=== PATIENT | male | born 1960 | race Caucasian/White ===

== ENCOUNTER 2016-05-11 09:40 | Outpatient (CLI) | payer OTHER | END 2016-05-11 23:59 | DX: Z00.00 Encounter for general adult medical examination without abnormal findings (principal); R73.01 Impaired fasting glucose; Z12.5 Encounter for screening for malignant neoplasm of prostate ==

== ENCOUNTER 2017-02-12 12:49 | Outpatient (CLI) | payer OTHER ==
--- NOTE | 2017-02-12 14:50 | MRI Preliminary Report ---
Exam: MRI LUMBAR SPINE W/O IMPRESSION: 1. Conus terminates at T12 which is normal, no abnormal cord signal. No scoliosis or listhesis. Moder ate fatty atrophy of the multifidus muscle is noted. No fractures. 2. L2-L3 shows disk dehydration and short pedicles. Mild central stenosis, neural foraminal stenosis. 3. L3-L4 shows mild central stenosis, short pedicles. Mild bilateral foraminal stenosis. 4. L4-L5 shows broad-based bulge, slightly short pedicles. Some epidural lipomatosis. Mild to moderat e central stenosis and moderate foraminal stenosis. 5. L5-S1 shows mild broad-based disk bulge. Epidural lipomatosis. Mild to moderate central stenosis. No foraminal narrowing. Comment: The following findings are so common in adults without low back pain that while we report th eir presence, they must be interpreted with caution and in the context of the clinical situation. (Re isac Roper et al, Spine 2001) Prevalence of findings in patients without low back pain: Disk degeneration (any evidence): 92% Disk desiccation/T2 signal loss: 83% Disk height loss: 56% Disk bulge: 64% Disk protrusion: 32% Annular tear/high intensity zone: 38% RADIA The call report notification system was initiated by Dr. Salo Zhu at 14:40 hrs on 02/12/17. The above findings were discussed with Dr. Ayala by Dr. Salo Zhu at 14:49 hrs on 02/12/17. SITE ID: [id number]
--- NOTE | 2017-02-12 15:16 | MRI Report ---
EXAM: MRI LUMBAR SPINE WITHOUT CONTRAST EXAM DATE: 02/12/2017 01:48 PM. CLINICAL HISTORY: Sciatica acute. COMPARISON: None. TECHNIQUE: Multiplanar, multisequence T1-weighted and fluid-sensitive sequences of the lumbar spine f rom T12 to S1 without contrast. Other: None. FINDINGS: Spinal Cord: The conus terminates at T12. The conus medullaris and cauda equina are unremarkable. Alignment: No scoliosis or spondylolisthesis. Bone Marrow: Five [id number] lumbar vertebral bodies are assumed. No gross fractures or bone les ions. No bone marrow edema. Disk Levels/Facets: T12-L1: Unremarkable. L1-L2: Unremarkable. L2-L3: Some disk dehydration, mild bulge. Short pedicles. Prominent facets. Mild central stenosis. No foraminal narrowing. L3-L4: Some disk dehydration, prominent facets. Short pedicles. Mild central stenosis. Mild bilateral foraminal stenosis. L4-L5: Broad-based disk bulge, disk dehydration. Schmorl's nodes. Slightly short pedicles. Some epidu ral lipomatosis is present. Mild to moderate central stenosis. Prominent facets.Mild to moderate fora roby stenosis L5-S1: Disk space height loss, mild broad-based disk bulge. Epidural lipomatosis. Mild to moderate ce ntral stenosis. No foraminal narrowing. Musculature: Moderate fatty atrophy of the multifidus muscle is seen. Other: The partially visualized retroperitoneum is unremarkable. IMPRESSION: 1. Conus terminates at T12 which is normal, no abnormal cord signal. No scoliosis or listhesis. Moder ate fatty atrophy of the multifidus muscle is noted. No fractures. 2. L2-L3 shows disk dehydration and short pedicles. Mild central stenosis, neural foraminal stenosis. 3. L3-L4 shows mild central stenosis, short pedicles. Mild bilateral foraminal stenosis. 4. L4-L5 shows broad-based bulge, slightly short pedicles. Some epidural lipomatosis. Mild to moderat e central stenosis and moderate foraminal stenosis. 5. L5-S1 shows mild broad-based disk bulge. Epidural lipomatosis. Mild to moderate central stenosis. No foraminal narrowing. Comment: The following findings are so common in adults without low back pain that while we report th eir presence, they must be interpreted with caution and in the context of the clinical situation. (Re isac Roper et al, Spine 2001) Prevalence of findings in patients without low back pain: Disk degeneration (any evidence): 92% Disk desiccation/T2 signal loss: 83% Disk height loss: 56% Disk bulge: 64% Disk protrusion: 32% Annular tear/high intensity zone: 38% RADIA The call report notification system was initiated by Dr. Salo Zhu at 14:40 hrs on 02/12/17. The above findings were discussed with Dr. Ayala by Dr. Salo Zhu at 14:49 hrs on 02/12/17. Referring Provider Line: [phone] SITE ID: [id number]
== END 2017-02-12 12:50 | disposition home or self-care (01) ==
LOC: DI 12:49
PROVIDERS: ATTEND Family Medicine
DX: M54.30 Sciatica, unspecified side (principal)
CPT/HCPCS: 72148

== ENCOUNTER 2017-03-18 08:00 | Outpatient (CLI) | payer OTHER ==
[2017-03-18 13:23] LABS: ALBUMIN 4.4 g/dL (3.2-5.5); ALKALINE PHOSPHATASE 36 IU/L (42-121); ALT ALANINE AMINOTRANSFERASE 53 IU/L (10-60); AST ASPARTATE AMINOTRANSFERASE 37 IU/L (10-42); BILIRUBIN,TOTAL 0.5 mg/dL (0.2-1.0); TOTAL PROTEIN 7.5 g/dL (6.7-8.2)
[2017-03-18 13:28] LABS: BILIRUBIN,DIRECT < 0.1 mg/dL (0.1-0.5)
[2017-03-19 12:56] LABS: HEPATITIS B SURFACE ANTIGEN NON-REACTIVE (NON-REACTIVE); HEPATITIS C ANTIBODY NON-REACTIVE (NON-REACTIVE)
== END 2017-03-18 08:01 | disposition home or self-care (01) ==
LOC: LAB.WCP 08:00
PROVIDERS: ATTEND Family Medicine
DX: Z20.5 Contact with and (suspected) exposure to viral hepatitis (principal); Z12.5 Encounter for screening for malignant neoplasm of prostate
CPT/HCPCS: 36415; 80076; 84153; 86317; 86704; 86803; 87340

== ENCOUNTER 2017-03-26 08:16 | Day surgery (SDC) | payer OTHER ==
[2017-03-26] MEDS ORDERED: LACTATED RINGERS 1,000 ML IV ONE (08:33)
[2017-03-26] MEDS ORDERED: fentaNYL 100 MCG/2 ML VIAL IVP ONE (10:45)
[2017-03-26] MEDS ORDERED: MIDAZOLAM 2 MG/2 ML VIAL IVP ONE (10:45)
[2017-03-26 11:27] VITALS: BP 112/63
== END 2017-03-26 08:17 | disposition home or self-care (01) ==
LOC: SDS 08:16
PROVIDERS: ATTEND Surgery
PROC: 0DJD8ZZ Inspection of Lower Intestinal Tract, Via Natural or Artificial Opening Endoscopic (ICD-10-PCS; principal; 2017-03-26 09:45)
DX: Z12.11 Encounter for screening for malignant neoplasm of colon (principal); Z80.0 Family history of malignant neoplasm of digestive organs; Z87.891 Personal history of nicotine dependence
CPT/HCPCS: 45378; J7120

== ENCOUNTER 2017-04-18 20:20 | Outpatient (CLI) | payer OTHER ==
[2017-04-18 13:02] LABS: HB2 TOTAL 17.6 g/dL; HEMOGLOBIN A1C 0.65 g/dL; HEMOGLOBIN A1C % 5.5 % (4.6-6.2)
[2017-04-18 14:00] LABS: THYROID STIMULATING HORMONE 1.29 uIU/mL (0.34-5.60)
== END 2017-04-18 20:21 | disposition home or self-care (01) ==
LOC: LAB.WCP 20:20
PROVIDERS: ATTEND Family Medicine
DX: R20.0 Anesthesia of skin (principal)
CPT/HCPCS: 36415; 81599; 82607; 83036; 83921; 84155; 84165; 84443; 86334

== ENCOUNTER 2017-09-18 09:13 | Outpatient (CLI) | payer OTHER ==
--- NOTE | 2017-09-18 10:27 | XRAY Report ---
Procedure Date: 09/18/2017 Accession Number: [id number] / [id number] Procedure: [place] - Esophogram CPT Code: FULL RESULT: EXAM: Esophogram DATE: 09/18/2017 10:11 AM CLINICAL HISTORY: DYSPHAGIA COMPARISON: Esophagram 09/18/2017 and 05/31/2006. TECHNIQUE: Routine double contrast esophagram. Fluoroscopic exposure time: 1 minute 50 seconds. Number of fluoroscopic images: 35. FINDINGS: Swallowing Mechanism: Normal. No tracheal aspiration or penetration. Esophageal Motility: Somewhat disorganized peristaltic stripping wave. Mucosa: Normal. No ulcerations or masses. Gastroesophageal Junction: Status post Mattie fundoplication with no evidence of hernia. No reflux is observed. Slight holdup of contrast passage at the fundoplication, expected. Other: None. IMPRESSION: Mildly disorganized esophageal stripping wave. Normal postoperative GE junction. RADIA
== END 2017-09-18 09:14 | disposition home or self-care (01) ==
LOC: DI 09:13
PROVIDERS: ATTEND Surgery
DX: R13.10 Dysphagia, unspecified (principal)
CPT/HCPCS: 74220

== ENCOUNTER 2017-10-08 10:25 | Day surgery (SDC) | payer OTHER ==
[2017-10-08] MEDS ORDERED: LACTATED RINGERS 1,000 ML IV ONE (11:11)
[2017-10-08] MEDS ORDERED: LIDO GARGLE 30 ML BOTTLE ONE (11:55)
[2017-10-08] MEDS ORDERED: fentaNYL 100 MCG/2 ML VIAL IVP ONE (12:16)
[2017-10-08] MEDS ORDERED: MIDAZOLAM 2 MG/2 ML VIAL IVP ONE (12:16)
[2017-10-08 13:26] VITALS: BP 123/79
== END 2017-10-08 10:26 | disposition home or self-care (01) ==
LOC: SDS 10:25
PROVIDERS: ATTEND Surgery
PROC: 0DB68ZX Excision of Stomach, Via Natural or Artificial Opening Endoscopic, Diagnostic (ICD-10-PCS; principal; 2017-10-08 11:30)
DX: R13.10 Dysphagia, unspecified (principal); Z87.891 Personal history of nicotine dependence
CPT/HCPCS: 43239; A9270; J7120

== ENCOUNTER 2019-09-10 07:00 | Outpatient (CLI) | payer MEDICARE, OTHER ==
[2019-09-10 19:10] LABS: BASOPHILS % (AUTO) 0.8 %; EOSINOPHILS # (AUTO) 0.1 10^3/uL (0.0-0.7); EOSINOPHILS % (AUTO) 1.8 %; HGB - HEMOGLOBIN 14.7 g/dL (14.0-18.0); LYMPHOCYTES # (AUTO) 1.5 10^3/uL (1.5-3.5); LYMPHOCYTES % (AUTO) 37.8 %; MEAN CORPUSCULAR HEMOGLOBIN 32.2 pg (27.0-31.0); MEAN CORPUSCULAR HGB CONC 33.3 g/dL (32.0-36.0); MEAN CORPUSCULAR VOLUME 96.7 fL (80.0-94.0); MEAN PLATELET VOLUME 9.1 fL (7.4-11.4); MONOCYTES # (AUTO) 0.5 10^3/uL (0.0-1.0); MONOCYTES % (AUTO) 12.8 %; NEUTROPHILS # (AUTO) 1.9 10^3/uL (1.5-6.6); NEUTROPHILS % (AUTO) 46.5 %; PLT - PLATELET COUNT 182 10^3/uL (130-450); RED BLOOD COUNT 4.57 10^6/uL (4.70-6.10); RED CELL DISTRIBUTION WIDTH 13.3 % (12.0-15.0)
[2019-09-10 19:30] LABS: BILIRUBIN,URINE NEGATIVE (NEGATIVE); GLUCOSE, URINE (UA) NEGATIVE (NEGATIVE); HB2 TOTAL 15.5 g/dL; HEMOGLOBIN A1C 0.56 g/dL; HEMOGLOBIN A1C % 5.5 % (4.6-6.2); KETONES,URINE (UA) NEGATIVE (NEGATIVE); LEUKOCYTE ESTERASE, URINE NEGATIVE (NEGATIVE); NITRITE,URINE NEGATIVE (NEGATIVE); OCCULT BLOOD,URINE NEGATIVE (NEGATIVE); PROTEIN,URINE NEGATIVE (NEGATIVE); UROBILINOGEN,URINE 0.2 (NORMAL) E.U./dL (NORMAL)
[2019-09-10 19:32] LABS: ALBUMIN 4.3 g/dL (3.2-5.5); ALBUMIN/GLOBULIN RATIO 1.3 (1.0-2.2); BILIRUBIN,TOTAL 0.6 mg/dL (0.2-1.0); CALCIUM 9.3 mg/dL (8.5-10.3); CLARITY,URINE CLEAR (CLEAR); TOTAL PROTEIN 7.5 g/dL (6.7-8.2)
== END 2019-09-10 23:59 | disposition home or self-care (01) ==
LOC: LAB.WCP 07:00
PROVIDERS: ATTEND Family Medicine
DX: R73.01 Impaired fasting glucose (principal); R39.11 Hesitancy of micturition; Z12.5 Encounter for screening for malignant neoplasm of prostate; R13.10 Dysphagia, unspecified
CPT/HCPCS: 36415; 80053; 81003; 83036; 85025; G0103; 81001; 84153; 87086

== ENCOUNTER 2020-10-06 10:49 | Outpatient (CLI) | payer MEDICARE, OTHER ==
[2020-10-06 17:44] LABS: BASOPHILS % (AUTO) 0.6 %; EOSINOPHILS # (AUTO) 0.1 10^3/uL (0.0-0.7); EOSINOPHILS % (AUTO) 1.6 %; HGB - HEMOGLOBIN 15.9 g/dL (14.0-18.0); LYMPHOCYTES % (AUTO) 47.9 %; MEAN CORPUSCULAR HEMOGLOBIN 31.9 pg (27.0-31.0); MEAN CORPUSCULAR HGB CONC 33.1 g/dL (32.0-36.0); MEAN CORPUSCULAR VOLUME 96.2 fL (80.0-94.0); MEAN PLATELET VOLUME 9.2 fL (7.4-11.4); MONOCYTES # (AUTO) 0.7 10^3/uL (0.0-1.0); MONOCYTES % (AUTO) 10.7 %; NEUTROPHILS # (AUTO) 2.4 10^3/uL (1.5-6.6); NEUTROPHILS % (AUTO) 38.9 %; PLT - PLATELET COUNT 204 10^3/uL (130-450); RED BLOOD COUNT 4.99 10^6/uL (4.70-6.10); RED CELL DISTRIBUTION WIDTH 13.7 % (12.0-15.0); WHITE BLOOD COUNT 6.2 x10^3/uL (4.8-10.8)
[2020-10-06 18:09] LABS: ALBUMIN 4.3 g/dL (3.2-5.5); ALBUMIN/GLOBULIN RATIO 1.4 (1.0-2.2); ALKALINE PHOSPHATASE 36 IU/L (42-121); ALT ALANINE AMINOTRANSFERASE 38 IU/L (10-60); AST ASPARTATE AMINOTRANSFERASE 31 IU/L (10-42); BILIRUBIN,TOTAL 0.9 mg/dL (0.2-1.0); BUN - BLOOD UREA NITROGEN 19 mg/dL (6-20); CALCIUM 9.6 mg/dL (8.5-10.3); CARBON DIOXIDE - CO2 26 mmol/L (21-32); CHLORIDE 103 mmol/L (101-111); CHOL/HDL RATIO 4.1 (<5.0); CHOLESTEROL 270 mg/dL; GFR - MDRD 76 (>89); GLUCOSE 73 mg/dL (70-100); HDL CHOLESTEROL 66 mg/dL; POTASSIUM 4.3 mmol/L (3.5-5.0); SODIUM 138 mmol/L (135-145); TOTAL PROTEIN 7.4 g/dL (6.7-8.2); TRIGLYCERIDES 413 mg/dL
[2020-10-06 18:55] LABS: LDL CHOLESTEROL,DIRECT 151 mg/dL; LDLD/HDL RATIO 2.3 (<3.6)
[2020-10-06 21:57] LABS: ESTIMATED AVERAGE GLUCOSE 123 mg/dL (70-100); HEMOGLOBIN A1c% 5.9 % (4.27-6.07)
== END 2020-10-06 23:59 | disposition home or self-care (01) ==
LOC: LAB.WCP 10:49
PROVIDERS: ATTEND Family Medicine
DX: E78.5 Hyperlipidemia, unspecified (principal); R73.01 Impaired fasting glucose; N40.1 Benign prostatic hyperplasia with lower urinary tract symptoms; N13.8 Other obstructive and reflux uropathy; R13.10 Dysphagia, unspecified
CPT/HCPCS: 36415; 80053; 80061; 83036; 83721; 84153; 85025